=== PATIENT | female | born 1945 | race Caucasian/White ===

== ENCOUNTER 2021-10-03 08:02 | Day surgery (SDC) | payer MEDICARE, OTHER ==
[~2021-10-03] VITALS: Ht 152.4 cm; Wt 48.1 kg
[2021-10-03] MEDS ORDERED: CELEXA 20MG20 MG/TAB PO (08:52)
[2021-10-03] MEDS ORDERED: PRINIVIL20 MG PO (08:52)
[2021-10-03] MEDS ORDERED: CALCIUM 600 PLU1 TAB PO (08:53)
[2021-10-03] MEDS ORDERED: MAGNESIUM250 M1 PO (08:54)
[2021-10-03] MEDS ORDERED: MULTI VITAMINS1 TAB PO (08:55)
[2021-10-03] MEDS ORDERED: PRILOTC (08:56)
[2021-10-03] MEDS ORDERED: FOLIC ACID 11 MG/TA1 PO (08:56)
[2021-10-03] MEDS ORDERED: PLAQUENIL 200M200 MG PO (08:57)
[2021-10-03] MEDS ORDERED: METHOTREXA2.5 MG/TAB PO (08:58)
[2021-10-03] MEDS ORDERED: IRON TABLETS325 MG PO (08:59)
[2021-10-03] MEDS ORDERED: TYLENOL 500MG500 MG PO (09:00)
[2021-10-03] MEDS ORDERED: MASON NATURAL600 MG PO (09:01)
[2021-10-03] MEDS ORDERED: SYSTANE 0.4%-0.1 SOL OU (09:02)
[2021-10-03 10:05] VITALS: BP 140/62; PULSE 72; TEMP 98.4
[2021-10-03 10:20] VITALS: BP 158/66; PULSE 76
[2021-10-03 10:35] VITALS: BP 149/64; PULSE 77
[2021-10-03 12:04] VITALS: BP 113/60; PULSE 82; TEMP 98.1
--- NOTE | 2021-10-03 15:23 | NUR ---
1005 PT RETURNED TO BAY 8 VIA CART. TRANSFERRED TO CHAIR WITH RN ASSIST. ALERT AND ORIENTED. MONITORS ATTACHED, INTERVALS AND ALARMS SET. VSS. PT DENIES PAIN OR NAUSEA. FOOD AND DRINK PROVIDED. CALL LIGHT IN REACH. DR IN TO SPEAK WITH PT. 1020 VSS. PT DENIES DISCOMFORT. TOLERATING FOOD AND DRINK WELL. 1035 BP ELEVATED, OK TO D/C PER DIRECTOR OF SPA AND GUEST EXPERIENCE. PT DENIES DISCOMFORT. REVIEWED DISCHARGE INSTRUCTIONS AND EDUCATION MATERIAL, ANSWERED ALL QUESTIONS. IV REMOVED WITHOUT COMPLICATIONS. ASSISTED PT TO DRESS. 1045 TRANSFERRED PT VIA WHEELCHAIR TO PERSONAL VEHICLE TO BE DRIVEN HOME BY SON.
== END 2021-10-03 10:55 | disposition home or self-care (01) ==
LOC: SDCO 08:02
DX: C18.9 Malignant neoplasm of colon, unspecified (principal); K57.30 Diverticulosis of large intestine without perforation or abscess without bleeding; R19.7 Diarrhea, unspecified; D50.0 Iron deficiency anemia secondary to blood loss (chronic); K21.9 Gastro-esophageal reflux disease without esophagitis; R10.84 Generalized abdominal pain; Z28.310 Unvaccinated for COVID-19; Z28.9 Immunization not carried out for unspecified reason
CPT/HCPCS: J2704; J3010; J7120

== ENCOUNTER 2021-10-08 21:45 | Inpatient (IN) | payer MEDICARE, OTHER ==
[~2021-10-08] VITALS: Ht 152.4 cm; Wt 49.9 kg
[~2021-10-08 21:45] MED LIST: CALCIUM 600 PLU1 TAB PO; CELEXA 20MG20 MG/TAB PO; FOLIC ACID 11 MG/TA1 PO; IRON TABLETS325 MG PO; MAGNESIUM250 M1 PO; MASON NATURAL600 MG PO; METHOTREXA2.5 MG/TAB PO; MULTI VITAMINS1 TAB PO; PLAQUENIL 200M200 MG PO; PRILOTC; PRINIVIL20 MG PO; SYSTANE 0.4%-0.1 SOL OU; TYLENOL 500MG500 MG PO
[2021-10-09] VITALS (21 sets, daily range): BP systolic 109–169; BP diastolic 42–75; PULSE 69–88; TEMP 98–98.9
--- NOTE | 2021-10-09 00:10 | NUR ---
PATIENT UP TO ROOM 348 AT 2219 VIA EMS STRETCHER. ALERT AND ORIENTED. SLID OVER TO BED BY SELF. DENYING PAIN. MED RX COMPLETED. SEE ADMIN ASSESSMENT. CALL PLACED TO DR. LOPEZ TO NOTIFY OF PATIENT ARRIVAL, SEE ORDERS. IVF STARTED TO L FA IV. PATIENT DENYING NAUSEA. NG TO R NARE TO LIS WITH SMALL AMOUNT OF CLEAR FLUID OUT. DENIES ADDITIONAL NEEDS.
[2021-10-09 07:03] LABS: BASO # 0.1 K/mm3 (0.0-0.2); BASO % 0.5 % (0.0-2.0); EOS # 0.2 K/mm3 (0.0-0.7); EOS % 1.2 % (0.0-4.0); GRAN # 8.9 K/mm3 (1.4-6.5); GRAN % 69.1 % (42.2-75.2); LYMPH # 2.4 K/mm3 (1.2-3.4); LYMPH % 18.4 % (20.0-51.0); MEAN CELL VOLUME 95 fl (80.0-100.0); MEAN CORPUSCULAR HGB CONC 31 g/dl (33.0-37.0); MEAN PLATELET VOLUME 9.2 fl (7.4-10.4); MONO # 1.3 K/mm3 (0.1-0.6); MONO % 10.3 % (1.7-9.3); PLATELET COUNT 493 K/mm3 (130-400); RED BLOOD COUNT 2.21 M/mm3 (4.10-5.30); REDCELL DISTRIBUTION WIDTH-CV 15.3 % (11.5-14.5)
[2021-10-09 07:10] LABS: MEAN CORPUSCULAR HEMOGLOBIN 29 pg (27-31)
[2021-10-09 07:13] LABS: ALBUMIN 2.1 gm/dL (3.4-4.8); BILIRUBIN,TOTAL 0.2 mg/dL (0.2-1.2); CALCIUM 7.7 mg/dL (8.4-10.2); CREATININE, serum 0.67 mg/dL (0.57-1.11); POTASSIUM 4.4 mmol/L (3.5-4.5)
[2021-10-09 07:14] LABS: HEMOGLOBIN 6.5 g/dl (12.5-16.0)
--- NOTE | 2021-10-09 07:46 | NUR ---
LEFT VOICE MAIL FOR LAB CRITICAL RESULTS.
--- NOTE | 2021-10-09 08:41 | NUR ---
Patient prescribed hazardous medication: methotrexate. Staff to follow chemo precautions when handling urine and feces for 3 days after last dose. Per med rec, last dose 10/05 so patient currently off precautions unless medication reactivated. Notified care team.
--- NOTE | 2021-10-09 10:08 | NUR ---
PT UP TO BSC WITH SBA. VOIDED RETURNED TO BED. ASSESSMENTS COMPLETE, VSS, 1ST UNIT OF PRBC TRANSFUSING AFTER CHECKING WITH SADIE MCKEON RN. REVIEWED TRANSFUSION REACTIONS WITH PT. PT VERBALIZED UNDERSTANDING.
--- NOTE | 2021-10-09 13:39 | NUR ---
Initial visit; Miguel thanked [facility] for looking in on her and offering encouragement and prayer prior to her surgical procedure. [facility] will follow up while patient is here.
--- NOTE | 2021-10-09 13:43 | NUR ---
social worker masters met with patient to complete intake and discuss discharge plan. Patient has multiple family members present at bedside (Brother, son, daughter and their respective spouses). Patient reports that she lives at home with her son Zain ([phone]) in [place]. Patient reports that prior to this she has been independent with her ADL's and does not utilize any DME to assist with mobility. Patient states that she does not have any home oxygen needs. PCP is Didi Ott and she utilizes [facility] for prescriptions. Patient reports that she does not have a DPOA-HC estbalished. Education provided and patient verbalizes that she would like all three of her children to make the decision together. SW asked patient's RN to place a PT/OT order in on the patient. Discharge plan: Home; pending PT/OT eval.
--- NOTE | 2021-10-09 16:56 | NUR ---
PT TO SURGERY PER BED AT THIS TIME.
[2021-10-09 21:20] LABS: HEMATOCRIT 35.5 % (37.0-47.0); HEMOGLOBIN 11.6 g/dl (12.5-16.0)
--- NOTE | 2021-10-10 00:19 | NUR ---
POST OP BP ELEVATED, 169/59. CALL PLACED TO BALDEMAR, NO NEW ORDERS AT THIS TIME.
--- NOTE | 2021-10-10 00:31 | NUR ---
PATIENT BACK FROM SURGERY AT 2029. FAMILY AT BEDSIDE. MIDLINE INCISION CDI. FRANCO TO DD WITH CLEAR YELLOW OUTPUT. EPIDURAL INFUSING AND PATIENT INSTRUCTED ON HOW TO PUSH BUTTON. IVF INFUSING. SCD'S IN PLACE.
[2021-10-10 03:39] VITALS: BP 169/55; PULSE 70; TEMP 98
[2021-10-10 06:12] LABS: BASO % 0.2 % (0.0-2.0); GRAN # 14.4 K/mm3 (1.4-6.5); GRAN % 87.7 % (42.2-75.2); LYMPH # 0.9 K/mm3 (1.2-3.4); LYMPH % 5.2 % (20.0-51.0); MEAN CELL VOLUME 97 fl (80.0-100.0); MEAN CORPUSCULAR HGB CONC 32 g/dl (33.0-37.0); MEAN PLATELET VOLUME 9.2 fl (7.4-10.4); MONO % 6.3 % (1.7-9.3); RED BLOOD COUNT 2.81 M/mm3 (4.10-5.30); REDCELL DISTRIBUTION WIDTH-CV 14.8 % (11.5-14.5)
[2021-10-10 06:24] LABS: HEMOGLOBIN 8.7 g/dl (12.5-16.0); MEAN CORPUSCULAR HEMOGLOBIN 31 pg (27-31)
[2021-10-10 06:25] LABS: HEMATOCRIT 27.3 % (37.0-47.0); PLATELET COUNT 338 K/mm3 (130-400)
[2021-10-10 06:29] LABS: CREATININE, serum 0.57 mg/dL (0.57-1.11); POTASSIUM 4.6 mmol/L (3.5-4.5)
[2021-10-10 08:00] VITALS: BP 141/55; PULSE 81; TEMP 98.3
[2021-10-10 12:00] VITALS: BP 139/54; PULSE 72; TEMP 98.4
[2021-10-10 15:15] VITALS: BP 159/54; PULSE 85; TEMP 98.9
--- NOTE | 2021-10-10 16:57 | NUR ---
PT A/OX4, WITH EPIDURAL INFUSING, INT ON L
--- NOTE | 2021-10-10 17:00 | NUR ---
PT A/OX4, WITH EPIDURAL INFUSING WELL, WITH INT ON HER LFA AND IV ON HER RH LR INFUSING WELL, WITH FRANCO CATHETER DRAINING CLEAR YELLOW URINE, SON AT BEDSIDE, APPLIED KPAD TO THE ABDOMEN TO HELP WITH THE PAIN, NEEDS AND CONCERNS ADDRESSED, WITH ABDOMINAL INCISION CDI, WILL CONTINUE TO MONITOR.
--- NOTE | 2021-10-10 19:00 | NUR ---
PT ASSISTED FROM CHAIR TO BED WITH ONE ASSIST. EPIDURAL SITE WITH OCCLUSIVE DRSG D/I. PT IS ALERT AND ORIENTED X4. HAS INT TO LFA AND IVF TO RT HAND, INFUSING WITHOUT PROBLEM. ABD MIDLINE DRSG D/I. DENIES PASSING FLATUS. TAKING CLEAR LIQUIDS. FRANCO TO BSD WITH YELLOW URINE.
[2021-10-10 20:01] VITALS: BP 160/57; PULSE 85; TEMP 99.1
[2021-10-10 23:24] VITALS: BP 130/69; PULSE 87; TEMP 98.2
--- NOTE | 2021-10-11 | NUR ---
PT RESTING QUIETLY. USING EPIDURAL NEEDED. IVF CONTINUE TO RT HAND. FRANCO PATENT.
[2021-10-11 04:06] VITALS: BP 160/65; PULSE 86; TEMP 98.6
[2021-10-11 06:37] LABS: MEAN CELL VOLUME 94 fl (80.0-100.0); MEAN CORPUSCULAR HGB CONC 33 g/dl (33.0-37.0); MEAN PLATELET VOLUME 9.2 fl (7.4-10.4); PLATELET COUNT 422 K/mm3 (130-400); RED BLOOD COUNT 3.53 M/mm3 (4.10-5.30); REDCELL DISTRIBUTION WIDTH-CV 14.9 % (11.5-14.5)
[2021-10-11 06:52] LABS: CALCIUM 8.6 mg/dL (8.4-10.2); CREATININE, serum 0.71 mg/dL (0.57-1.11); POTASSIUM 4.4 mmol/L (3.5-4.5)
[2021-10-11 06:56] LABS: HEMOGLOBIN 10.8 g/dl (12.5-16.0); MEAN CORPUSCULAR HEMOGLOBIN 31 pg (27-31)
[2021-10-11 08:09] VITALS: BP 155/71; PULSE 81; TEMP 98.3
--- NOTE | 2021-10-11 09:00 | NUR ---
Pt doing well this morning. Dr Snyder has been in to see pt, new orders. Diet explained to pt and assisted pt with ordering. Pt states that her pain is tolerable with the epidural. Abd incision with dressing that is CDI. Explained the Lovenox injection to her. No other needs, will continue to monitor. Pts son is at bedside
--- NOTE | 2021-10-11 10:51 | NUR ---
Pt did tolerate the full liquid diet with no complaints of N/V. Pt has worked with PT and is currently sitting up in the chair. Son remains present in the room. Call light within reach, will continue to monitor
[2021-10-11 11:51] VITALS: BP 155/57; PULSE 88; TEMP 98
--- NOTE | 2021-10-11 15:00 | NUR ---
Pt continues to get around well, epidural controlling pain with PRESS SERVICE READER. No complaints of N/V at this time.
[2021-10-11 15:08] VITALS: BP 148/55; PULSE 94; TEMP 98.4
--- NOTE | 2021-10-11 16:46 | NUR ---
Mitchell catheter removed at this time. Educated pt that she needs to notify nursing when she needs to void so that we can help her in to the bathroom. Pain continues to be tolerable at this time
--- NOTE | 2021-10-11 19:30 | NUR ---
ASSISTED TO BATHROOM TO VOID, ABLE TO URINATE 50CC YELLOW URINE. BACK TO BED. EPIDURAL CATHETER SECURED TO BACK, TANYA D/I.
[2021-10-11 19:35] VITALS: BP 166/64; PULSE 96; TEMP 99.3
--- NOTE | 2021-10-11 21:50 | NUR ---
DC'D INT FROM LFA, ANGIOCATH INTACT. TAKES HS MED WITHOUT PROBLEM. ABD MIDLINE DRSG D/I, BOWEL SOUNDS HYPOACTIVE, DENIES FLATUS. EPIDURAL CATHETER INTACT. SCDS ON.
--- NOTE | 2021-10-11 21:55 | NUR ---
ASSISTED TO BATHROOM, VOIDS 200CC YELLOW URINE, BACK TO BED WITH ONE ASSIST.
[2021-10-11 23:47] VITALS: BP 168/66; PULSE 95; TEMP 98.8
[2021-10-12] VITALS (7 sets, daily range): BP systolic 133–171; BP diastolic 52–69; PULSE 82–99; TEMP 98.3–99.7
--- NOTE | 2021-10-12 04:00 | NUR ---
PT UP TO BATHROOM, VOIDING WELL. NO FLATUS. EPIDURAL INFUSING.
--- NOTE | 2021-10-12 06:39 | NUR ---
PT TAKES PROTONIX WITHOUT PROBLEM. ASSISTED TO BATHROOM, VOIDS AND BACK TO BED.
[2021-10-12 06:40] LABS: MEAN CELL VOLUME 94 fl (80.0-100.0); MEAN CORPUSCULAR HGB CONC 33 g/dl (33.0-37.0); MEAN PLATELET VOLUME 9.4 fl (7.4-10.4); PLATELET COUNT 397 K/mm3 (130-400); RED BLOOD COUNT 3.13 M/mm3 (4.10-5.30); REDCELL DISTRIBUTION WIDTH-CV 14.5 % (11.5-14.5)
[2021-10-12 06:48] LABS: HEMATOCRIT 29.3 % (37.0-47.0); HEMOGLOBIN 9.7 g/dl (12.5-16.0); MEAN CORPUSCULAR HEMOGLOBIN 31 pg (27-31)
[2021-10-12 07:01] LABS: CALCIUM 9.1 mg/dL (8.4-10.2); CREATININE, serum 0.68 mg/dL (0.57-1.11); POTASSIUM 4.3 mmol/L (3.5-4.5)
--- NOTE | 2021-10-12 07:05 | NUR ---
NOTIFIED OF PTS WBC=23.2, NO NEW ORDERS AT THIS TIME.
[2021-10-12 07:31] LABS: BAND 2 % (0-10); BASOPHIL 1 % (0-2); EOSINOPHIL 4 % (0-4); LYMPHOCYTE 5 % (20.0-51.0); METAMYELOCYTE 1 % (0-0); NEUTROPHILS 78 % (42.0-75.2)
[2021-10-12 07:34] LABS: PLATELET ESTIMATE NORMAL (NORMAL)
[2021-10-12 07:36] LABS: OVALOCYTES 1+
--- NOTE | 2021-10-12 10:00 | NUR ---
Pt doing well this morning. Pain continues to be controlled by epidural. Pt is not passing gas yet from surgery. She does get up stand by assist to the restroom, voiding without difficulty. Pt has been up walking in the halls, does well. Will continue to monitor
[2021-10-12 11:01] LABS: COLLECTION METHOD CLEAN CATCH
[2021-10-12 11:18] LABS: MUCOUS Present (NOT PRESENT); SQUAMOUS EPITHELIAL 0-2 /hpf (0-10); URINE BACTERIA None Seen /hpf (NONE SEEN)
[2021-10-12 11:19] LABS: URINE APPEARANCE Clear (CLEAR/HAZY); URINE COLOR Yellow (YELLOW)
[2021-10-12 11:20] LABS: PH 6.5 (5-8); URINE BLOOD TRACE-INTACT (NEGATIVE); URINE GLUCOSE Negative (NEGATIVE); URINE KETONE 1+ (NEGATIVE); URINE NITRATE Negative (NEGATIVE); URINE PROTEIN(semi-quant) Negative (NEGATIVE); URINE UROBILINOGEN 0.2 (NEGATIVE)
--- NOTE | 2021-10-12 12:30 | NUR ---
Pt BP elevated during routine vitals, rechecked at normal rate
[2021-10-13 04:30] VITALS: BP 155/60; PULSE 88; TEMP 98.4
[2021-10-13 06:31] LABS: MEAN CELL VOLUME 93 fl (80.0-100.0); MEAN CORPUSCULAR HGB CONC 33 g/dl (33.0-37.0); MEAN PLATELET VOLUME 9.3 fl (7.4-10.4); PLATELET COUNT 462 K/mm3 (130-400); RED BLOOD COUNT 3.04 M/mm3 (4.10-5.30); REDCELL DISTRIBUTION WIDTH-CV 14.4 % (11.5-14.5)
[2021-10-13 06:45] LABS: HEMATOCRIT 28.4 % (37.0-47.0); HEMOGLOBIN 9.4 g/dl (12.5-16.0); MEAN CORPUSCULAR HEMOGLOBIN 31 pg (27-31)
[2021-10-13 07:13] LABS: CALCIUM 8.9 mg/dL (8.4-10.2); CREATININE, serum 0.65 mg/dL (0.57-1.11); MAGNESIUM 1.8 mg/dL (1.6-2.6); PHOSPHOROUS 3.7 mg/dL (2.3-4.7); POTASSIUM 4.1 mmol/L (3.5-4.5)
--- NOTE | 2021-10-13 07:14 | NUR ---
made aware of elevated WBC.
[2021-10-13 07:57] VITALS: BP 155/51; PULSE 84; TEMP 99.1
[2021-10-13 08:44] LABS: BAND 1 % (0-10); EOSINOPHIL 3 % (0-4); LYMPHOCYTE 4 % (20.0-51.0); NEUTROPHILS 86 % (42.0-75.2)
[2021-10-13 08:45] LABS: HYPOCHROMIA 1+
[2021-10-13 08:46] LABS: PLATELET ESTIMATE INCREASED (NORMAL)
--- NOTE | 2021-10-13 10:18 | NUR ---
Spoke with about continuing epidural today and removal tmrw. Will given today dose of lovenox. Also we discussed dulcolax suppository. Hospitalist team rounded and plan of care reviewed.
[2021-10-13 12:00] VITALS: BP 132/59; PULSE 85; TEMP 98.5
[2021-10-13 15:04] VITALS: BP 136/52; PULSE 77; TEMP 98.2
--- NOTE | 2021-10-13 15:48 | NUR ---
Patient alert and orientedx4, son at bedside, with IV LR infusing well on her right hand, with epidural infusing well and dressing clean dry and intact, with abdominal ABD dressing CDI, up to the bathroom and chair with 1 person assist, worked with the PT and she did well, gave 1 supp dulcolax and she had a small bm after, needs and concerns addressed, reported she had grilled chicken and said it was good, call light and personal items within reach
[2021-10-13 19:35] VITALS: BP 120/99; BP 147/58; PULSE 84; TEMP 98.8
[2021-10-13 23:55] VITALS: BP 151/60; PULSE 85; TEMP 98.5
--- NOTE | 2021-10-13 23:55 | NUR ---
SHIFT REPORT FROM RYAN JAUREGUI. PATIENT UP TO BATHROOM WITH STANDBY ASSIST AND DID ORAL CARES. ABD MIDLINE CDI WITH KARI INTACT. IVF AND INT ABX TO R HAND IV. TOLERATING LOW FIBER DIET. STATES SHE IS PASSING GAS. EPIDURAL IN PLACE BUT WAS INSTRUCTED TO SHUT OFF WHEN RUNS OUT. DENIES ADDITIONAL NEEDS. CALL LIGHT IN REACH.
[2021-10-14 04:11] VITALS: BP 135/64; PULSE 85; TEMP 98.5
[2021-10-14 06:37] LABS: CALCIUM 8.6 mg/dL (8.4-10.2); CREATININE, serum 0.74 mg/dL (0.57-1.11)
[2021-10-14 07:06] LABS: MEAN CELL VOLUME 94 fl (80.0-100.0); MEAN CORPUSCULAR HGB CONC 33 g/dl (33.0-37.0); MEAN PLATELET VOLUME 9.2 fl (7.4-10.4); PLATELET COUNT 488 K/mm3 (130-400); RED BLOOD COUNT 3.05 M/mm3 (4.10-5.30); REDCELL DISTRIBUTION WIDTH-CV 14.4 % (11.5-14.5)
[2021-10-14 07:08] LABS: HEMATOCRIT 28.6 % (37.0-47.0); HEMOGLOBIN 9.3 g/dl (12.5-16.0); MEAN CORPUSCULAR HEMOGLOBIN 30 pg (27-31)
--- NOTE | 2021-10-14 08:00 | NUR ---
PATIENT IS A&O. VSS. REPORTS EPIDURAL IS MANAGING HER PAIN. EPIDURAL INFUSING AT 2CC/HR. IV FLUIDS INFUSING VIA PUMP INTO RIGHT HAND IV. ABD MIDLINE IS CD&I. ABD IS ROUND, SOFT AND WITH POSITIVE BOWL SOUNDS. PATIENT REPORTS PASSING GAS, NO BM. NO C/O N/V. TOLERATING LOW FIBER DIET. AM MEDS GIVEN. HEAD TO TOE ASSESSMENT COMPLETE. SCD'S CURRENTLY OFF. PT/OT CONSULTED. NO OTHER NEEDS AT THIS TIME. CALL LIGHT IN REACH. BED ALARM ON.
[2021-10-14 08:02] VITALS: BP 147/52; PULSE 83; TEMP 98.9
[2021-10-14 09:03] LABS: BAND 5 % (0-10); EOSINOPHIL 5 % (0-4); LYMPHOCYTE 7 % (20.0-51.0); NEUTROPHILS 78 % (42.0-75.2); PLATELET ESTIMATE INCREASED (NORMAL)
[2021-10-14 12:00] VITALS: BP 141/53; PULSE 75; TEMP 98.6
--- NOTE | 2021-10-14 14:50 | NUR ---
PATIENT EPIDURAL INFUSION HAS BEEN OUT SINCE EARLY LUNCH. ANESTHESIA GAVE ORDER TO DC EPIDURAL. PATIENT WAS OUT IN HALLS AND WORKING WITH PT AT TIME. PATIENT NOW BACK IN ROOM AND READY TO HAVE EPIDURAL DC'D. EPIDURAL CATH TIP INTACT AND PATIENT TOLERATED WELL. SEE EPIDURAL FLOW SHEET. ALSO NOTED NEW ORDERS FROM HOSPITALIST FOR HEPARIN BOLUS AND DRIP. CALLED PHARMACY TO CONFIRM HEPARIN GTT CAN NOT BE GIVEN TILL 2 HOURS POST EPIDURAL REMOVAL. SEE CHANGES IN MAR.
--- NOTE | 2021-10-14 15:00 | NUR ---
NOTIFIED HOSPITALIST OF PHARMACY RECS FOR STARTING HEPARIN GTT POST EPIDURAL DC. HOSPITALIST WANTS TO BE CAUTIOUS AT START GTT AT 1800. SEE MAR.
[2021-10-14 15:28] LABS: PARTIAL THROMBOPLASTIN TIME 28.7 SECONDS (26.0-37.0)
[2021-10-14 16:00] VITALS: BP 147/47; PULSE 82; TEMP 98.8
--- NOTE | 2021-10-14 18:00 | NUR ---
STARTED HEPARIN GTT PER ORDERS, SEE MAR
[2021-10-14 19:54] VITALS: BP 132/51; PULSE 72; TEMP 98.8
--- NOTE | 2021-10-14 20:00 | NUR ---
PT IN BED, HAS HEPARIN GTT TO RT HAND INFUSING AT 9CC/HR. PT IS ALERT AND ORIENTED X4. HAS BEEN PASSING FLATUS, NO BM. VOIDING PALE YELLOW URINE WITHOUT PROBLEM. ABD MIDLINE OPEN TO AIR, WITH KARI INTACT. TAKING SCHEDULED ES TYLENOL WITHOUT PROBLEM.
[2021-10-14 23:29] VITALS: BP 150/51; PULSE 69; TEMP 98
--- NOTE | 2021-10-15 | NUR ---
HEP XA=0.56, NO CHANGE AT THIS TIME.
[2021-10-15 03:17] VITALS: BP 161/59; PULSE 64; TEMP 98.3
--- NOTE | 2021-10-15 05:50 | NUR ---
TAKES SCHEDULED PO MEDS WITHOUT PROBLEM. HEPARIN CONTINUES.
[2021-10-15 06:58] LABS: MEAN CELL VOLUME 96 fl (80.0-100.0); MEAN CORPUSCULAR HGB CONC 32 g/dl (33.0-37.0); MEAN PLATELET VOLUME 9.6 fl (7.4-10.4); PLATELET COUNT 551 K/mm3 (130-400); RED BLOOD COUNT 3.21 M/mm3 (4.10-5.30); REDCELL DISTRIBUTION WIDTH-CV 14.5 % (11.5-14.5)
[2021-10-15 07:05] LABS: HEMATOCRIT 30.9 % (37.0-47.0); HEMOGLOBIN 9.8 g/dl (12.5-16.0); MEAN CORPUSCULAR HEMOGLOBIN 31 pg (27-31)
[2021-10-15 07:18] LABS: CALCIUM 9.1 mg/dL (8.4-10.2); CREATININE, serum 0.74 mg/dL (0.57-1.11); POTASSIUM 3.9 mmol/L (3.5-4.5)
[2021-10-15 07:24] VITALS: BP 141/52; PULSE 68; TEMP 97.5
[2021-10-15 08:25] LABS: BAND 5 % (0-10); EOSINOPHIL 10 % (0-4); LYMPHOCYTE 20 % (20.0-51.0); NEUTROPHILS 59 % (42.0-75.2); PLATELET ESTIMATE INCREASED (NORMAL)
--- NOTE | 2021-10-15 08:45 | NUR ---
Pt doing okay this morning. Pain is tolerable, increases with movement. Denies the need for pain medication at this time. Pt did eat a small amount for breakfast. No complaints of nausea, just states she is not hungry. Pt reports that she is passing gas and does have the off and on feeling of needing to have a bowel movement. Pt did request prune juice which I gave at this time. Pt using call light and is stand by assist to the restroom. Heparin infusing, no change at the 0600 lab draw. Midline incision is well approximated with teena intact, no redness or drainage noted. Call light within reach, will continue to monitor
[2021-10-15 11:50] VITALS: BP 149/52; PULSE 62; TEMP 97.6
--- NOTE | 2021-10-15 13:00 | NUR ---
Pt continues to do well with minimal pain complaints, mostly just with movement. Schedule tylenol working for pain. Pt did shower today. Incision remains open to air with teena intact. Pt walking in the halls off and on throughout the day. Encouragin her to drink the ensure clears. PO intake is improving. Call light within reach
[2021-10-15 15:40] VITALS: BP 149/60; PULSE 69; TEMP 98.7
[2021-10-15 19:47] VITALS: BP 145/52; PULSE 67; TEMP 97.9
[2021-10-16] VITALS (7 sets, daily range): BP systolic 146–185; BP diastolic 49–59; PULSE 60–74; TEMP 97.7–98.4
--- NOTE | 2021-10-16 00:44 | NUR ---
SHIFT REPORT FROM GORGE JAUREGUI. PATIENT IN BED ON ROOM ENTRY. MIDLINE WITH KARI INTACT IS CDI AND OPEN TO AIR. INTERMITTENT ABX TO R HAND IV, DOES COMPLAIN OF SOME TENDERNESS TO THIS SIT BUT IV IS PATENT AND FLUSHES WITHOUT ISSUE. HS MEDS PER EMAR. PATIENT STATES SHE IS PASSING GAS BUT HAS NOT HAD A BM YET. DENIES ADDITIONAL NEEDS. CALL LIGHT IN REACH.
[2021-10-16 06:32] LABS: MEAN CORPUSCULAR HGB CONC 30 g/dl (33.0-37.0); MEAN PLATELET VOLUME 9.2 fl (7.4-10.4); PLATELET COUNT 567 K/mm3 (130-400); RED BLOOD COUNT 3.15 M/mm3 (4.10-5.30); REDCELL DISTRIBUTION WIDTH-CV 14.6 % (11.5-14.5)
[2021-10-16 06:37] LABS: HEMOGLOBIN 9.5 g/dl (12.5-16.0); MEAN CELL VOLUME 102 fl (80.0-100.0); MEAN CORPUSCULAR HEMOGLOBIN 30 pg (27-31)
--- NOTE | 2021-10-16 09:55 | NUR ---
PATIENT ALERT AND ORIENTED X4. VSS. PATIENT HERE FOR OPEN RIGHT HEMICOLECTOMY. PATIENT DENIES PAIN AT THIS TIME. PATIENT REPORTS BM X2 THIS AM. PATIENT TOLERATING LOW FIBER DIET, NO N/V. IV TO RIGHT HAND TENDER, FLUSHES WELL. ZOSYN ADMINISTERED. PATIENT LAYING IN BED WITH CALL LIGHT NEAR.
--- NOTE | 2021-10-16 21:16 | NUR ---
SHIFT REPORT FROM MARTÍN JAUREGUI. PATIENT IN BED ON ROOM ENTRY. HS MEDS PER EMAR. ZOSYN INFUSING TO R HAND IV. MIDLINE WITH KARI INTACT OPEN TO AIR. PATIENT STATES DR. LOPEZ WAS IN TO SEE HER THIS EVENING AND TOLD HER SHE WOULD GET HER KARI OUT IN THE MORNING AND THEN BE DISCHARGED IN THE AFTERNOON.
[2021-10-17 00:09] VITALS: BP 165/56; PULSE 70; TEMP 98.2
[2021-10-17 04:38] VITALS: BP 169/52; PULSE 59; TEMP 98
[2021-10-17 07:09] LABS: MEAN CORPUSCULAR HGB CONC 32 g/dl (33.0-37.0); MEAN PLATELET VOLUME 9.3 fl (7.4-10.4); PLATELET COUNT 612 K/mm3 (130-400); RED BLOOD COUNT 3.09 M/mm3 (4.10-5.30); REDCELL DISTRIBUTION WIDTH-CV 14.3 % (11.5-14.5)
[2021-10-17 07:13] LABS: HEMATOCRIT 29.4 % (37.0-47.0); HEMOGLOBIN 9.4 g/dl (12.5-16.0); MEAN CELL VOLUME 95 fl (80.0-100.0); MEAN CORPUSCULAR HEMOGLOBIN 30 pg (27-31)
[2021-10-17 07:15] VITALS: BP 160/53; BP 166/58; PULSE 66; TEMP 98.2
[2021-10-17 07:30] LABS: CALCIUM 8.5 mg/dL (8.4-10.2); CREATININE, serum 0.72 mg/dL (0.57-1.11); POTASSIUM 3.9 mmol/L (3.5-4.5)
--- NOTE | 2021-10-17 08:00 | NUR ---
Assessment complete. A&Ox4. Denies pain, nausea and shortness of breath. VS remain stable. Midline incision with 13 intact teena-edges well approximated. No drainage noted. Voiding without difficulty. +BM. INT to right wrist flushes well. Plan of care discussed for this shift to include meds/rounds/calling for questions/concerns and possible discharge. Verbalizes understanding. Call light in reach. Will monitor.
[2021-10-17 08:20] LABS: BAND 7 % (0-10); BASOPHIL 1 % (0-2); EOSINOPHIL 12 % (0-4); LYMPHOCYTE 21 % (20.0-51.0); NEUTROPHILS 52 % (42.0-75.2); PLATELET ESTIMATE INCREASED (NORMAL)
[2021-10-17] MEDS ORDERED: ELIQUIS 5MG PO (09:03)
[2021-10-17] MEDS ORDERED: ROXICODONE 55 MG/TAB PO (09:06)
--- NOTE | 2021-10-17 10:53 | NUR ---
Ten[place]a to midline abdomen removed at this time x13. Steri strips applied. INT to right hand DCd cath intact. Tolerated well.
--- NOTE | 2021-10-17 12:22 | NUR ---
Discharge instructions given both verbal and handwritten. Discussed f/u appt, s/s of infection, home medication, and when to return to ER/Docs office. Verbalizes understanding/denies questions/concerns. Escorted off floor in wheelchair by JOLEEN Vila in stable condition.
== END 2021-10-17 12:25 | disposition home or self-care (01) | DRG 330 ==
LOC: SURG 21:45
PROVIDERS: Internal Medicine; Physician Assistant; Student in an Organized Health Care Education/Training Program; Surgery; ADMIT Surgery
PROC: 30233N1 Transfusion of Nonautologous Red Blood Cells into Peripheral Vein, Percutaneous Approach (ICD-10-PCS; 2021-10-09)
PROC: 0DTF0ZZ Resection of Right Large Intestine, Open Approach (ICD-10-PCS; principal; 2021-10-09 16:30)
DX: C18.2 Malignant neoplasm of ascending colon (principal); D62 Acute posthemorrhagic anemia; K56.609 Unspecified intestinal obstruction, unspecified as to partial versus complete obstruction; K92.2 Gastrointestinal hemorrhage, unspecified; E44.0 Moderate protein-calorie malnutrition; D84.9 Immunodeficiency, unspecified; I10 Essential (primary) hypertension; K21.9 Gastro-esophageal reflux disease without esophagitis; G43.909 Migraine, unspecified, not intractable, without status migrainosus; L40.50 Arthropathic psoriasis, unspecified; D50.9 Iron deficiency anemia, unspecified; D72.829 Elevated white blood cell count, unspecified; D75.839 Thrombocytosis, unspecified; D73.5 Infarction of spleen; F32.A Depression, unspecified; F41.9 Anxiety disorder, unspecified; M85.80 Other specified disorders of bone density and structure, unspecified site; Z98.51 Tubal ligation status
CPT/HCPCS: A4314; A9284; J0330; J1100; J1644; J1650; J2250; J2370; J2543; J3010; J3480; J7050; J7120; P9016; Q9967

== ENCOUNTER 2021-12-24 10:59 | Day surgery (SDC) | payer MEDICARE, OTHER ==
[~2021-12-24] VITALS: Ht 152.4 cm; Wt 49.0 kg
[2021-12-24] VITALS (7 sets, daily range): BP systolic 138–166; BP diastolic 49–70; PULSE 61–74; TEMP 97.8–98.2
[~2021-12-24 10:59] MED LIST changes: +ELIQUIS 5MG PO; +ROXICODONE 55 MG/TAB PO
[2021-12-24 13:16] LABS: MEAN CELL VOLUME 95 fl (80.0-100.0); MEAN CORPUSCULAR HGB CONC 31 g/dl (33.0-37.0); MEAN PLATELET VOLUME 9.3 fl (7.4-10.4); PLATELET COUNT 435 K/mm3 (130-400); RED BLOOD COUNT 3.23 M/mm3 (4.10-5.30); REDCELL DISTRIBUTION WIDTH-CV 15.6 % (11.5-14.5)
[2021-12-24 13:22] LABS: HEMATOCRIT 30.7 % (37.0-47.0); HEMOGLOBIN 9.4 g/dl (12.5-16.0); MEAN CORPUSCULAR HEMOGLOBIN 29 pg (27-31)
[2021-12-24 13:33] LABS: ALBUMIN 3.9 gm/dL (3.4-4.8); BILIRUBIN,TOTAL 0.4 mg/dL (0.2-1.2); CALCIUM 9.1 mg/dL (8.4-10.2); CREATININE, serum 0.79 mg/dL (0.57-1.11); POTASSIUM 4.6 mmol/L (3.5-4.5)
[2021-12-24] MEDS ORDERED: HCTZ 25MG TAB25 MG PO (13:39)
[2021-12-24] MEDS ORDERED: NORCO 325 MG-51 TAB PO (14:43)
--- NOTE | 2021-12-24 16:06 | NUR ---
PT ARRIVED TO AMBULATORY SX BAY 7 A&O, NAD, VSS ON RA. MUSE X4, SKIN PWD. DENIES COMPLAINT OR NEED. REPORT FROM NEERU S/P PORT-A-CATH PLACEMENT TO LEFT CHEST. PT PLACED ON MONITOR, PT WITH WARMED BLANKET. LW PIV INTACT AND INFUSING. SON/RIDE HOME IN WR - UPDATED.
--- NOTE | 2021-12-24 16:11 | NUR ---
A&O, NAD, VS WDL FOR PT, WHO MISSED BP MED THIS MORNING (WILL TAKE WHEN SHE GETS HOME). GIVEN COLD WATER AND APPLE SAUCE PER REQUEST. DENIES COMPLAINT. CALL LIGHT IN REACH
--- NOTE | 2021-12-24 16:14 | NUR ---
IVF PAUSED, PT ASSISTED TO BR WITH STAND BY ASSIST - INSTRUCTED TO ACTIVATE CALL LIGHT FOR ASSIST BACK, AND COMPLIED. TOLERATING PO, DENIES PAIN/COMPLAINT. STEADY GAIT. VS WDL. DENIES FURTHER INTERVENTION OF NEED.
--- NOTE | 2021-12-24 16:17 | NUR ---
PT'S SON/RIDE HOME BROUGHT BACK TO BEDSIDE TO PARTICIPATE IN PT EDUCATION. PT PROVIDED VERBAL AND WRITTEN D/C INSTRUCTIONS, ALONG WITH PORT-A-CATH POCKET CARD AND DR LOPEZ'S OFFICE CONTACT INFO AND D/C MEDS. ALL QUESTIONS ANSWERED TO PT/SON'S SATISFACTION, WITH VERBALIZED UNDERSTANDING. IV D/C'D, PT HAS CHANGED BACK INTO CLOTHING.
--- NOTE | 2021-12-24 16:20 | NUR ---
PT D/C'D HOME WITH ALL BELONGINGS AND D/C INSTRUCTIONS. PIV HAS BEEN REMOVED. PT TAKEN TO HOSPITAL ENTRANCE VIA W/C, ALONG WITH SON, WHO IS DRIVING PT HOME. DRSG REMAINS CDI. PT REMAINS A&O, NAD, PWD, WITHOUT COMPLAINT UPON D/C.
== END 2021-12-24 15:35 | disposition home or self-care (01) ==
LOC: SDCO 10:59
PROVIDERS: Surgery
DX: C18.9 Malignant neoplasm of colon, unspecified (principal); K63.89 Other specified diseases of intestine; I82.890 Acute embolism and thrombosis of other specified veins; D73.5 Infarction of spleen; K56.691 Other complete intestinal obstruction
CPT/HCPCS: C1788; J0690; J1644; J2704